=== PATIENT | female | born 1935 | race Caucasian/White ===

== ENCOUNTER 2017-06-23 08:31 | Day surgery (SDC) | payer OTHER ==
[~2017-06-23] VITALS: Ht 167.6 cm; Wt 74.4 kg
[~2017-06-23 08:31] MED LIST: ASPIR 8181 M1 PO; ASPIR-LOW81 MG PO; BENADRYL25 MG PO; CARDIZEM30 MG PO; CARDIZEM60 MG PO; CIPROFLOXACIN500 M1 PO; CLEOCIN100 MG VG; CLONAZEPAM0.5 MG; DELTASONE20 M1 PO; DIAZEPAM5 MG PO; DURICEF500 MG; ENDOCET 5-3251 EACH PO; FLAX OIL1000 MG PO; FLOMAX0.4 MG PO; HYDROCHLOROTH12.5 M3; HYDROCHLOROTH12.5 M3 PO; KEFLEX500 MG PO; MOTRIN400 MG PO; PANTOPRAZOLE SO40 MG PO; PRAVASTATIN SOD40 MG PO; PRINIVIL10 MG PO; PROAIR HFA8.5 GM IH; PROBIOTIC1 EAC1 PO; PROTONIX40 MG PO; VALIUM5 MG PO; VITAMIN D35000 UNIT PO; ZANTAC150 MG PO
== END 2017-06-23 16:01 | disposition home or self-care (01) ==
LOC: CATH 08:31
DX: I25.10 Atherosclerotic heart disease of native coronary artery without angina pectoris (principal); I71.2 Thoracic aortic aneurysm, without rupture; I65.23 Occlusion and stenosis of bilateral carotid arteries; Z85.3 Personal history of malignant neoplasm of breast; F41.9 Anxiety disorder, unspecified
CPT/HCPCS: 93005; C1760; C1769; C1887; C1894; J1200; J1644; J2250; J2765; J2930; J3010; J7040